=== PATIENT | female | born 1960 ===

== ENCOUNTER 2019-06-01 14:38 | Outpatient (RCR) | payer MEDICARE, OTHER | END 2019-06-12 | disposition home or self-care (01) | LOC: WCC 14:38 | DX: L97.514 Non-pressure chronic ulcer of other part of right foot with necrosis of bone (principal); E11.9 Type 2 diabetes mellitus without complications; E66.9 Obesity, unspecified; I11.9 Hypertensive heart disease without heart failure; I25.10 Atherosclerotic heart disease of native coronary artery without angina pectoris; Z95.1 Presence of aortocoronary bypass graft; E78.00 Pure hypercholesterolemia, unspecified; A52.16 Charcot's arthropathy (tabetic); M86.9 Osteomyelitis, unspecified; I10 Essential (primary) hypertension; Z89.411 Acquired absence of right great toe; Z79.82 Long term (current) use of aspirin; Z79.02 Long term (current) use of antithrombotics/antiplatelets; Z79.4 Long term (current) use of insulin; E11.621 Type 2 diabetes mellitus with foot ulcer | CPT/HCPCS: 82962; G0277; G0463 ==

== ENCOUNTER 2019-06-14 10:54 | Outpatient (RCR) | payer MEDICARE, OTHER | END 2019-07-13 | disposition home or self-care (01) | LOC: WCC 10:54 | DX: E11.621 Type 2 diabetes mellitus with foot ulcer (principal); L97.514 Non-pressure chronic ulcer of other part of right foot with necrosis of bone | CPT/HCPCS: 82962; 97605; G0277; G0463 ==

== ENCOUNTER 2019-07-14 09:07 | Outpatient (RCR) | payer MEDICARE, OTHER | END 2019-08-12 | disposition home or self-care (01) | LOC: WCC 09:07 | DX: L97.514 Non-pressure chronic ulcer of other part of right foot with necrosis of bone (principal); E11.621 Type 2 diabetes mellitus with foot ulcer; Z89.411 Acquired absence of right great toe; I10 Essential (primary) hypertension; Z79.82 Long term (current) use of aspirin; Z79.899 Other long term (current) drug therapy; Z79.02 Long term (current) use of antithrombotics/antiplatelets | CPT/HCPCS: G0277; G0463 ==